=== PATIENT | female | born 1995 | race Caucasian/White ===

== ENCOUNTER 2017-07-02 20:29 | Emergency (ER) | payer BC ==
--- NOTE | 2017-07-02 20:56 | ED Physician Documentation ---
Abdominal Pain - HISTORIAN Historian: patient, spouse - HPI Stated Complaint: Right Side Abdominal Pain Chief Complaint: Abdominal Pain Additonal Information: genl abd pain harish urq and suprapubic. onset 3 d ago had good bm friday sl better and lesseer bms since n perhaps worse. concerned re cancer or other serious condition-pt states sig anxiety Onset: days ago (3) Duration: constant, waxing, waning Timing: still present Context: denies: out of country travel, bad food, recent trauma Severity: moderate Quality: pain, cramping Associated Symptoms: nausea. denies: fever, chills, vomiting - ROS CONST: no problems GI/: denies: constipation, black stools, bloody urine, bloody stools, dark urine, problems urinating CVS/RESP: none EYES/ENT: none MS/SKIN/LYMPH: none, other (sl red rash "due to anxiety") NEURO/PSYCH: anxiety - SOCIAL HX Smoking History: non-smoker Alcohol Use: none Drug Use: none - FAMILY HX Family History: no significant history - PAST HX Past History: none Ischemic Bowel Risk Factors: none Surgeries/Procedures: none Immunizations: UTD. denies: influenza, pneumovax Home Medications: Ambulatory Orders Medication Instructions Recorded NK [NK] 07/02/17 Allergies/Adverse Reactions: Allergies Allergy/AdvReac Type Severity Reaction Status Date / Time No Known Allergies Allergy Unverified 07/02/17 20:39 - VITAL SIGNS Vital Signs: Vital Signs Temp Pulse Resp BP Pulse Ox 97.4 F L 99 H 18 134/68 99 07/02/17 20:30 07/02/17 20:30 07/02/17 20:30 07/02/17 20:30 07/02/17 20:30 - REVIEWED ASSESSMENTS Nursing Assessment Reviewed: Yes Vitals Reviewed: Yes ED Results Lab/Radiology - Lab Results Lab Results: Lab Results 07/02/17 07/02/17 07/02/17 21:00 21:00 21:00 WBC 6.40 K/ul K/ul (4.00-12.00) RBC 4.45 M/ul M/ul (3.90-5.20) Hgb 13.5 g/dL g/dL (12.0-16.0) Hct 39.3 % % (34.5-46.5) MCV 88.3 fl fl (80.0-100.0) MCH 30.4 pg pg (28.0-34.0) MCHC 34.4 g/dL g/dL (30.0-36.0) RDW 13.0 % % (11.3-14.3) Plt Count 189 K/mm3 K/mm3 (130-400) Neut % (Auto) 64.6 % % (39.0-79.0) Lymph % (Auto) 24.9 % % (16.0-50.0) [place] % (Auto) 5.8 % % (0.0-11.0) Eos % (Auto) 2.1 % % (0.0-6.8) Baso % (Auto) 0.3 (0.0-1.5) Neut # (Auto) 4.2 # k/uL # k/uL (1.4-7.7) Lymph # (Auto) 1.6 # k/uL # k/uL (0.6-4.0) Gar[place] # (Auto) 0.4 # k/uL # k/uL (0.0-0.9) Eos # (Auto) 0.1 # k/uL # k/uL (0.0-0.6) Baso # (Auto) 0.0 # k/uL # k/uL (0.0-0.5) Reactive Lymphs % 2.3 % % (0.0-5.0) Reactive Lymphs # 0.2 # k/uL # k/uL (0.0-0.8) Sodium 143 mmol/L mmol/L (136-145) Potassium 3.4 mmol/L L mmol/L (3.5-5.1) Chloride 106 mmol/L mmol/L (98-107) Carbon Dioxide 23 mmol/L mmol/L (22-30) BUN 11 mg/dL mg/dL (7-17) Creatinine 0.80 mg/dL mg/dL (0.52-1.04) Estimated Creat Clear 110 Est GFR ( Amer) > 60 (60 - ) Est GFR (Non-Af Amer) > 60 (60 - ) Glucose 91 mg/dL mg/dL (74-106) Calcium 9.1 mg/dL mg/dL (8.4-10.2) Total Bilirubin 0.7 mg/dL mg/dL (0.2-1.3) AST 23 U/L U/L (15-46) ALT 36 U/L U/L (13-69) Alkaline Phosphatase 54 U/L U/L (38-126) Total Protein 7.1 g/dL g/dL (6.3-8.2) Albumin 4.1 g/dL g/dL (3.5-5.0) Lipase 83 U/L U/L (23-300) - Radiology Radiology Impressions: xs feces area pain rad read as excess gas - Orders Orders: ED Orders Category Date Time Status ABD SERIES PA CHEST [RAD] Stat Exams 07/02/17 Taken CBC/PLATELET/DIFF Routine Lab 07/02/17 21:00 Completed CMP Routine Lab 07/02/17 21:00 Completed LIPASE Stat Lab 07/02/17 21:00 Completed URINALYSIS Routine Lab 07/02/17 Ordered Abdominal Pain Physical Exam - Physical Exam General Appearance: mild distress EENT: eye inspection normal NECK: normal inspection. No: lymphadenopathy, carotid bruit RESPIRATORY: no resp distress, chest non-tender, breath sounds normal CVS: reg rate & rhythm, heart sounds normal ABDOMEN: soft, tenderness (throughout harish urq and suprapubic) BACK: normal inspection SKIN: warm/dry, normal color, other (sl erythema). No: cyanosis, diaphoresis, jaundice, mottled NEURO: oriented X3 Vital Signs: Vital Signs Temp Pulse Resp BP Pulse Ox 97.4 F L 99 H 18 134/68 99 07/02/17 20:30 07/02/17 20:30 07/02/17 20:30 07/02/17 20:30 07/02/17 20:30 Discharge Clincal Impression: un dx abd pain, hypokalemia, suspect constipation Referrals: Primary Doctor,No [Primary Care Provider] - 2 Days Comments: home laxative rted sy persist Condition: Good Disposition: 01 HOME, SELF-CARE Decision to Admit: NO Decision Time: 22:16
[2017-07-02 21:12] LABS: BASOPHILS % 0.3 (0.0-1.5); EOSINOPHILS % 2.1 % (0.0-6.8); MEAN CORPUSCULAR HEMOGLOBIN 30.4 pg (28.0-34.0); MEAN CORPUSCULAR VOLUME 88.3 fl (80.0-100.0); MONOCYTES % 5.8 % (0.0-11.0); NEUTROPHILS # 4.2 # k/uL (1.4-7.7)
[2017-07-02 21:27] LABS: eGFR (Non-African) > 60
[2017-07-02 22:16] VITALS: BP 129/72
--- NOTE | 2017-07-03 08:01 | Diagnostic Imaging Report ---
CALLI CASTILLO~ [facility] [address] [address] ~ ~ ~ ~ Report Submission Date: Jul 02, 2017 9:50:59 PM CDT Patient ~ Study Name: RANDA LOPEZ ~ Date: Jul 02, 2017 9:31:55 PM CDT ~ Modality Type: DX Gender: F ~ Description: ABDOMEN : 89 ~ Institution: [facility] Physician: CALLI CASTILLO ~ ~ ~ Abdomen series with chest History: Abdominal pain Findings: A right pelvic phlebolith is observed. The bowel gas pattern is normal without obstruction, constipation, or free air. The lungs are hyperinflated without infiltrate or pleural effusion. Heart size is normal. Impression: Hyperinflation and normal bowel gas pattern. ~ Electronically signed on Jul 02, 2017 9:50:59 PM CDT by: Iván MARINELLI
== END 2017-07-02 22:11 | disposition home or self-care (01) ==
LOC: ED 20:29
DX: R10.9 Unspecified abdominal pain (principal); E87.6 Hypokalemia; K59.00 Constipation, unspecified
CPT/HCPCS: 74022; 80053; 83690; 85025; 99282; 99283